=== PATIENT | female | born 1935 | race Caucasian/White ===

== ENCOUNTER 2018-08-08 18:55 | Emergency (ER) | payer OTHER ==
[~2018-08-08] VITALS: Ht 157.5 cm; Wt 72.6 kg
== END 2018-08-08 22:26 | disposition home or self-care (01) ==
LOC: ER 18:55
DX: S60.212A Contusion of left wrist, initial encounter (principal); S00.83XA Contusion of other part of head, initial encounter; W18.39XA Other fall on same level, initial encounter; Y93.89 Activity, other specified; Y92.098 Other place in other non-institutional residence as the place of occurrence of the external cause; Y99.8 Other external cause status

== ENCOUNTER 2018-08-19 18:05 | Emergency (ER) | payer OTHER ==
[~2018-08-19] VITALS: Ht 152.4 cm; Wt 63.5 kg
== END 2018-08-20 08:07 | disposition home or self-care (01) ==
LOC: ER 18:05
DX: I12.9 Hypertensive chronic kidney disease with stage 1 through stage 4 chronic kidney disease, or unspecified chronic kidney disease (principal); N18.9 Chronic kidney disease, unspecified; R42 Dizziness and giddiness